=== PATIENT | male | born 1970 | race Caucasian/White ===

== ENCOUNTER 2016-11-17 12:00 | Inpatient (IN) | payer OTHER ==
[2016-11-17] VITALS (9 sets, daily range): BP systolic 113–141; BP diastolic 57–99; PULSE 69–94; RESP 13–20; O2SAT 95–100
[~2016-11-17] VITALS: Ht 180.3 cm; Wt 70.5 kg
--- NOTE | 2016-11-17 11:38 | ED.REPORT ---
HPI-General Illness Date of Service Nov 17, 2016 ED Provider: Baljinder Moore DO The pt is a 46 y/o male w/ a hx of HTN, syncope, and seizures presenting to the ED due to being found unconscious. The pt reports taking two nicotine lozenges earlier today, feeling dizzy, and then falling down. He was found soaking wet w / bystanders, which included a nurse, reporting him being pulseless, apneic, and appearing blue. CPR was begun but no shock was advised from the AED. CPR was initiated again after he turned blue again. Upon EMS arrival the patient had return of a pulse and EMS reports pt's mentation improving gradually since the episode. 4 mg of Zofran and then 2 mg of Zofran were given en route by EMS. The pt describes having a mild headache currently which is not normal for him. He is not taking any anti-seizure medications but does report taking Ibuprofen regularly. He was last seen here in the ED due to a similar episode of unresponsiveness in 2013 which was attributed in the ER to a seizure. However after more diagnostic workup no ongoing seizure medication was prescribed. Nursing Notes Stated Complaint: FOUND DOWN Chief Complaint: Found down Nursing Notes Reviewed: Yes Allergies: Coded Allergies: No Known Allergies (Unverified Allergy, Unknown, 11/09/13) General Time Seen by MD: 12:12 Chief Complaint Other ( Loss of consciousness ) Hx Obtained From: Patient, EMS Arrived By: Ambulance Sudden in Onset?: Yes Onset Occurred: Just prior to arrival Recent Healthcare: No recent doctor visit, No recent hospitalization Similar Sx Previous: Yes Past Medical History Past Medical History Seizures Syncope Past Surgical History None reported Family History Father had a hx of CHF Ambulatory Status Independent Review of Systems Full Review of Systems Neurologic: Reports: Numbness Complete sys rev & neg: except as marked. Physical Exam Vital Signs Vital Signs Date Time Temp Pulse Resp B/P Pulse Ox O2 Delivery O2 Flow Rate FiO2 11/17/16 13:59 82 13 130/82 99 Nasal Cannula 2 11/17/16 12:00 36.4 94 16 141/99 100 Room Air Initial VS: Reviewed Head / Eyes: Atraumatic, Normocephalic, PERRL ENT: Mucous membranes moist, Conjunctiva normal, No scleral icterus Neck: Supple, Non-tender, Full range of motion Respiratory: Breath sounds normal, Clear to auscultation, No respiratory distress Cardiovascular: Regular rate & rhythm, Heart sounds normal, Intact distal pulses Abdomen / GI: Soft, Non-tender, No guarding, No rebound, No distention Back: No CVA tenderness Extremities: Vascular intact, Neuro intact, No swelling, No tenderness Skin: Warm, Dry, No cyanosis General/Constitutional: Awake, Alert Neurologic: Oriented X3, No motor deficits Mental Status: Positive: Confused Interpretation & Diagnostics Lab Results Interpretation Result Diagram: 11/17/16 1216 11/17/16 1216 Test 11/17/16 12:05 11/17/16 12:16 11/17/16 14:19 Hold Urine Received (Received) White Blood Count 16.6th/mm3 (3.8-10.1) Red Blood Count 5.75mil/mm3 (4.40-5.80) Hemoglobin 16.7g/dL (13.8-17.2) Hematocrit 47.3% (41.0-50.0) Mean Corpuscular Volume 82.3fL (81-100) Mean Corpuscular Hemoglobin 29.0pg (27.0-35.0) Mean Corpuscular Hemoglobin Concent 35.3% (32.0-37.0) Red Cell Distribution Width 12.2% (12.3-15.4) Platelet Count 241bil/L (150-400) Neutrophils (%) (Auto) 82.3% (40-74) Lymphocytes (%) (Auto) 11.2% (14-46) Monocytes (%) (Auto) 4.6% (4-12) Eosinophils (%) (Auto) 1.3% (0-5) Basophils (%) (Auto) 0.3% (0-3) Sodium Level 138mEq/L (134-144) Potassium Level 4.5mEq/L (3.5-5.2) Chloride Level 99mEq/L (97-108) Carbon Dioxide Level 16mmol/L (18-29) Blood Urea Nitrogen 16mg/dL (6-24) Creatinine 1.19mg/dL (0.76-1.27) Estimat Glomerular Filtration Rate 71mL/min (>59) Glucose Level 174mg/dL (60-99) Calcium Level 9.3mg/dL (8.5-10.1) Total Bilirubin 0.5mg/dL (0.0-1.2) Aspartate Amino Transf (AST/SGOT) 47U/L (0-50) Alanine Aminotransferase (ALT/SGPT) 62U/L (0-44) Alkaline Phosphatase 100U/L (25-150) Total Protein 7.0g/dL (6.4-8.4) Albumin 4.3g/dL (3.4-5.0) Hold Weiner Top Tube Received (Received) Alcohols < 10mg/dL (0-10) Troponin T < 0.010ug/L (0.0-0.011) ECG Interpretation ECG Interpretation: Rate [address] elev, probable normal early repol pattern Time: 12:23 Interpreted by: ED physician X-Ray Chest Interpretation Chest Xray Interpretation: IMPRESSION: No acute disease Dictated by: Bertram Paige M.D. on 11/17/2016 at 13:06 Approved by: Bertram Paige M.D. on 11/17/2016 at 13:07 View: Portable, 1 view Interpretation / Wet Read by: Interpret - Radiologist CT Head Interpretation IMPRESSION: No acute intracranial process Dictated by: Bertram Paige M.D. on 11/17/2016 at 13:03 Approved by: Bertram Paige M.D. on 11/17/2016 at 13:04 Study: Head CT no contrast Interpretation / Wet Read by: Interpret - Radiologist Re-Eval/Medical Decision Med Decision/Clinical Course Patient presents after an episode of unresponsiveness. This may have represented syncope versus seizure versus cardiac arrest. Witnessed by-standards stated that he was pulseless apneic and blue. His cardiac workup in the ER is overall reassuring. This may have represented a seizure, and for that reason 1 g of IV Keppra was given. Patient has remained clinically stable since in the ER. He continues to perseverate and has not completely returned to his normal baseline. Additionally, the reported eyewitness bystander account of the patient being pulseless and apneic with color change is concerning for possible cardiac arrest. Given these reported findings recommended the patient be observed in the hospital. Source of Hx: Old records Time of Eval: 12:43 Re-Evaluation/Progress Note: Pt rechecked. He now reports his head and chest beginning to hurt. Time of Eval: 13:11 Re-Evaluation/Progress Note: Pt rechecked. Pt is perseverating and continues to have a mild headache Discussed lab and radiology results. Time of Eval: 13:24 Re-Evaluation/Progress Note: Pt rechecked. Informed pt of need for admission. Pt understands and agrees with plan for admission. All questions addressed. Consultation #1: Referral / Consult Name: Surya Bedolla Consulted With: Hospitalist Call Returned at: 13:53 Note: Discussed pt's case. Dr Bedolla will not be admitting the pt advised a neurology consult and see PCC. Consultation #2: Referral / Consult Name: [facility] Call Returned at: 15:00 Note: Discussed pt's case w/ Dr. Mcpherson of neurology. Agrees w/ obs. Recommends starting keppra 750 mg BID and to get a repeat MRI w/ contrast. Follow up with neurology outpatient. Agrees to consult via telephone as needed. No real indication for transfer. Consultation #3: Referral / Consult Name: Mayra Ladd DO Consulted With: Hospitalist Call Returned at: 15:01 Flight Teacher: Will see patient, Agrees with eval, Agrees with plan, Accepts admit Counseled Regarding: Diagnosis, Lab results, Need for admission Discharge & Departure Primary Impression: Syncope Syncope type: unspecified Qualified Code: R55 - Syncope and collapse Disposition: ADMITTED TO HOSPITAL Discharge Condition All VS Reviewed: Yes Condition: Stable Referrals: NOPCP (PCP) [facility] Scribe Attestation Portions of this note were transcribed by Dequan Bolanos. I, Dr. Gale personally performed the history, physical exam and medical decision-making; I reviewed and confirmed the accuracy of the information in the transcribed note. Signed by : Sugar Toro, 11/17/16 and 1207. copies to: [facility] Jose Gale DO Nov 17, 2016 11:38 Dequan Bolanos Nov 17, 2016 12:08
[2016-11-17] MEDS ORDERED: 0.9% Sodium Chloride 1,000 ML IV ONE ×2 (12:13→17:05)
[2016-11-17 12:24] LABS: BASOPHILS % (AUTO) 0.3 % (0-3); EOSINOPHILS % (AUTO) 1.3 % (0-5); MONOCYTES % (AUTO) 4.6 % (4-12); Mean Corpuscular Volume 82.3 fL (81-100); NEUTROPHILS % (AUTO) 82.3 % (40-74); Platelet Count 241 bil/L (150-400)
[2016-11-17] MEDS ORDERED: Ondansetron 2 mg/mL 2 mL Inj IVPUSH PRN ×3 (12:30→17:05)
--- NOTE | 2016-11-17 13:06 | DRSVH ---
PROCEDURE: CT BRAIN WITHOUT CONTRAST ([id number]) INDICATIONS: seizure TECHNIQUE: Noncontrast 4.5 mm thick angled axial sections acquired from the foramen magnum to the vertex, with c oronal reformats. COMPARISON: None. FINDINGS: Image quality: Excellent. CSF spaces: Basal cisterns are patent. No extra-axial fluid collections. Ventricles are normal in size and shape. Brain: No midline shift. No intracranial masses or hemorrhage. Belcher-white matter interface is norm al. Skull and face: Calvarium and visualized facial bones are intact, without suspicious lesions. Sinuses: Mild mucous retention cyst or polyp in the right maxillary antrum IMPRESSION: No acute intracranial process Dictated by: Bertram Paige M.D. on 11/17/2016 at 13:03 Approved by: Bertram Paige M.D. on 11/17/2016 at 13:04
--- NOTE | 2016-11-17 13:08 | DRSVH ---
PROCEDURE: X-RAY CHEST ONE VIEW, PORTABLE ([id number]) INDICATIONS: syncope vs seizure activity, TECHNIQUE: One view of the chest was acquired. COMPARISON: None. FINDINGS: Surgical changes and devices: None. Lungs and pleura: No pleural effusions or pneumothorax. Lungs are clear. Mediastinum: Mediastinal contours appear normal. Heart size is normal. Bones and chest wall: No suspicious bony lesions. Overlying soft tissues appear unremarkable. IMPRESSION: No acute disease Dictated by: Bertram Paige M.D. on 11/17/2016 at 13:06 Approved by: Bertram Paige M.D. on 11/17/2016 at 13:07
[2016-11-17] MEDS ORDERED: levETIRAcetam Inj 1,000 MG in IV Premix 1 EACH IV ONE (13:10)
[2016-11-17] MEDS ORDERED: Alum-Mag Hydrox-Simeth 30 mL Suspension PO PRN ×2 (15:15→17:05)
[2016-11-17] MEDS ORDERED: Labetalol 5 mg/mL 4 mL Inj IVPUSH ONE (17:05)
[2016-11-17] MEDS ORDERED: Labetalol 5 mg/mL 4 mL Inj IVPUSH PRN ×2 (17:05→18:35)
[2016-11-17] MEDS ORDERED: Polyethylene Glycol (PEG) 17 Gm Powder PO PRN (17:05)
--- NOTE | 2016-11-17 17:42 | PCM.HPMED ---
Subjective Date of Service Nov 17, 2016 Primary Provider: Admitting Physician: Mayra Ladd DO Primary Care Physician: Joe Attending Physician: Mayra Ladd DO Chief Complaint: Syncope History of Present Illness: 46-year-old male with a history of syncope, hypertension, and classical seizure 3 years ago presenting to the emergency department by EMS today after being found unconscious on the side of the road. Patient states that the last thing he remembers was working in his cabin and feeling dizzy. Per his mother's reports the patient was found on the side of a dirt road by a nurse driving by and CPR was started as the patient reportedly did not have a pulse. At that time mother states that the patient was blue, but improved with CPR; AED was placed but never used. When EMS arrived the patient had a pulse. He was taken to [facility] and en route EMS reports mentation was improving. Patient states that he does not remember anything until transport to the floor, meaning he is missing the ambulance ride and ED visit. Patient denies any recent illness, fever, chills, chest pain, shortness of breath, or other review of systems. He has been trying to quit smoking and states that he has been using wellbutrin and more than the recommended amount of nicotine lozenges. Patient was given loading dose of Keppra, and Dr. Mcpherson at [facility] was consultative. Patient's prior episode occurred 3 years ago and also occurred when he was attempting to quit smoking with the assistance of Wellbutrin and lozenges. He was seen by Dr. Clark 5 months after the episode and she discontinued Keppra. Review of Systems: Complete review of systems performed; pertinent positives and negatives per history of present illness; all other systems reviewed and are negative. Allergies Coded Allergies: No Known Allergies (Unverified Allergy, Unknown, 11/09/13) Home Medications Bupropion PMH Reported: Seizures; Syncope Surgical History None Family History Father had a history of heart failure but no sudden cardiac Social History Hx Alcohol Use: Yes (2-3 times per week) Alcoholic Drinks Per Day: 1-2 Hx Substance Use: No Smoking Status: Current Every Day Smoker Exam Vital Signs Vital Sign - Last Date Time Temp Pulse Resp B/P Pulse Ox O2 Delivery O2 Flow Rate FiO2 11/17/16 15:42 91 11/17/16 15:27 36.8 135/79 98 Nasal Cannula 2.00 11/17/16 15:14 20 Exam General: Patient awake alert, although appears uncomfortable HEENT: PERRLA, EOMI, no JVD, mucous membranes moist, Lymph: No lymphadenopathy Cardio: Regular rate and rhythm no murmurs rubs or gallops; chest tender to palpation; no bruising Respiratory: CTA bilaterally with out wheezes, rhonchi Abdomen: Mild guarding, nontender, nondistended, nonobese Extremities: No edema bilaterally or cyanosis; left middle finger open wound Psych: Mildly flat affect Neuro: CN II through XII intact; strength 5 out of 5 throughout; sensation intact throughout; reflexes 2 out of 4 Skin: No rashes Musculoskeletal: No abnormalities Lab and Diagnostics Result Diagram: 11/17/16 1216 11/17/16 1216 X-Rays, CTs and MRIs Brain CT IMPRESSION: No acute intracranial process Dictated by: Bertram Paige M.D. on 11/17/2016 at 13:03 Chest x-ray IMPRESSION: No acute disease Dictated by: Bertram Paige M.D. on 11/17/2016 at 13:06 12-lead ECG Sinus rhythm with rate of 91; no concerning ST deviations Assessment & Plan 46-year-old male with a past history of syncope and questionable seizures who was found on the side of the road following a syncopal event with reported respiratory and cardiac arrest. Syncope with possible cardiac arrest; present on admission; ongoing -Patient has a history of possible seizure activity, who presents with reported respiratory and cardiac arrest -Imaging so far is negative -Discuss with Dr. Mcpherson from [facility] and he recommended full stroke protocol imaging -Tox screen pending -Troponin negative 2; continue trending -Keppra loaded, continue Keppra -EEG, if not here then outpatient Acute Leukocytosis; present on admission; ongoing -Patient presented with white count 16+ -Received fluid resuscitation continued IVF -No fever or other signs of infection -Should patient develop additional symptoms will start on antibiotics and get blood cultures -Repeat CBC tomorrow Anion gap metabolic acidosis; present on admission; ongoing -Patient presents with a low bicarbonate and Of 23 -Fluid resuscitation and recheck in a.m. -Lactate pending Hyperglycemia; present admission; ongoing -Blood glucose 174 and admission Substance abuse, nicotine; present medicine; ongoing -Patient trying to quit smoking; [id number] history over 20 years -Patient was using more than recommended lozenge amount in conjunction with ibuprofen prior to episode -Nicotine patch 14 mg/24-hour -Discontinue Wellbutrin Disposition: Patient admitted to inpatient status with length of stay greater than 2 midnights due to severity of presentation, duration of treatment, and risk of adverse events. Pain Evaluation: Adequate Pain Control Resuscitation Status: CPR: Attempt Resuscitation Time spent 60minutes Attending Statement The patient was seen and examined together with Dr. Lambert on 11/17/16 and I have added additional information to the note above. Shoaib Lambert DO Nov 17, 2016 17:42 Mayra Ladd DO Nov 18, 2016 15:41
[2016-11-17] MEDS ORDERED: BUPR150T9 PO (18:37)
--- NOTE | 2016-11-17 19:13 | NUR ---
Admit Pt arrived from the ER with family at the bedside. C/O slight headache and chest muscle ache secondary to trauma from earlier in the day. Pt is A&O X3. Answers questions appropriately. INGRAM. No c/o numbness or tingling. Tele SR 70s-90s. Sp02 97% on RA. L middle finger abrasion covered with a band-aid. 20g IV in the LFA. NS hung at 125/hr. Pt is pleasant and cooperative.
[2016-11-18] VITALS (10 sets, daily range): BP systolic 100–126; BP diastolic 61–82; PULSE 56–80; RESP 14–18; O2SAT 95–98
[2016-11-18 05:27] LABS: BASOPHILS % (AUTO) 0.2 % (0-3); EOSINOPHILS % (AUTO) 4.1 % (0-5); MONOCYTES % (AUTO) 6.9 % (4-12); Mean Corpuscular Hemoglobin 30.1 pg (27.0-35.0); NEUTROPHILS % (AUTO) 65.2 % (40-74); Platelet Count 171 bil/L (150-400)
[2016-11-18 06:11] LABS: Magnesium 2.2 mg/dL (1.6-2.6); Phosphorus 3.2 mg/dL (2.5-4.9)
--- NOTE | 2016-11-18 08:46 | PCM.PNMED ---
Subjective Date of Service Nov 18, 2016 Subjective This is a 46 year old male with history of syncopal events from suspected seizure activity that occurred in setting of bupropion use and no longer on anti -seizure medications and recently started bupropion who presented after being found down and without a pulse. CPR was started. AED placed but no shockable rhythm. EMS arrived and found pulse. Suspected seizure on admit with Keppra loading dose provided. Overnight the patient states he is greatly improved. He no longer has confusion. He does admit to some chest pain over sternum that he states he can illicit by applying pressure in the area. Otherwise review of systems is negative. Exam Vital Signs Vital Sign - Last Date Time Temp Pulse Resp B/P Pulse Ox O2 Delivery O2 Flow Rate FiO2 11/18/16 08:32 37.1 67 18 126/79 98 Room Air 11/17/16 15:27 2.00 Intake and Output 11/17/16 11/17/16 11/18/16 Cumulative From/Thru 15:00 23:00 07:00 11/17/16 12:00 - 11/18/16 06:16 Intake Total 1100 ml 300 ml 1400 ml Output Total 500 ml 0 ml 500 ml Balance 600 ml 300 ml 900 ml Intake Oral 100 ml 300 ml 400 ml IV Total 1000 ml 1000 ml Output Urine Total 500 ml 0 ml 500 ml # Voids 2 3 5 Exam General: Patient awake alert, resting comfortably. HEENT: PERRLA, EOMI, no JVD, mucous membranes moist, Lymph: No lymphadenopathy Cardio: Regular rate and rhythm no murmurs rubs or gallops; chest tender to palpation; no bruising Chest: mild tenderness to palpation over sternal area. Respiratory: CTA bilaterally with out wheezes, rhonchi Abdomen: Mild guarding, nontender, nondistended, nonobese Extremities: No edema bilaterally or cyanosis, Psych: Mildly flat affect Neuro: CN II through XII intact; strength 5 out of 5 throughout; sensation intact throughout. Skin: No rashes Musculoskeletal: No abnormalities IVs and Medications Medications Reviewed: Medications were reviewed in detail Lab and Diagnostics Result Diagram: 11/18/16 0508 11/18/16 0508 X-Rays, CTs and MRIs Brain CT IMPRESSION: No acute intracranial process Dictated by: Bertram Paige M.D. on 11/17/2016 at 13:03 Chest x-ray IMPRESSION: No acute disease Dictated by: Bertram Paige M.D. on 11/17/2016 at 13:06 12-lead ECG Sinus rhythm with rate of 91; no concerning ST deviations Assessment & Plan 46-year-old male with a past history of syncope and questionable seizures who was found on the side of the road following a syncopal event with reported respiratory and cardiac arrest. Syncope; present on admission; ongoing -Patient has a history of possible seizure activity and recently started on bupropion, who presents with reported respiratory and cardiac arrest. Patient' s previous seizures several years ago was in the setting of bupropion use. -CT brain without contrast showed no acute intracranial abnormality. -Tox screen pending -Troponin negative. -Keppra started. -EEG, if not here then outpatient -Echo pending. -On telemetry. -Discuss with Dr. Mcpherson from [facility] and he recommended full stroke protocol imaging which is pending. Acute Leukocytosis; present on admission; resolved -Patient presented with white count 16+. Resolved on 11/18. -Likely secondary to stress reaction. Anion gap metabolic acidosis; present on admission; resolved. -Patient presents with a low bicarbonate. AG closed: 12 on 11/18. -Fluid resuscitation and recheck in a.m. -Lactate was 9.8 but is now .5. Hyperglycemia; present admission; resolved. -Blood glucose 174 on admission. On morning of 11/18 was 99. Substance abuse, nicotine; present medicine; ongoing -Patient trying to quit smoking; [id number] history over 20 years -Patient was using more than recommended lozenge amount in conjunction with ibuprofen prior to episode -Nicotine patch 14 mg/24-hour -Stop Bupropion. Disposition: Patient is currently progressing well and has had no more seizure- like activity. The patient most likely did have a seizure secondary to bupropion usage and overdose of nicotine lozenges. The patient has been recommended not to use bupropion anymore and this should be listed as the patient's allergy. The patient has been encouraged to continue with smoking cessation however he should most likely use the patch as directed and should abstain from bupropion usage and nicotine lozenge usage at this time. The patient has also been encouraged to start other habit-forming behavior such as exercising in place of nicotine usage. The patient and his mother stated that they both understood and will be willing to adhere to these recommendations. Resuscitation Status: CPR: Attempt Resuscitation Attending Statement The patient was seen and examined together with Dr. Saunders on 11/18/16 and I have added additional information to the note above. Geraldo Saunders DO Nov 18, 2016 08:46 Mayra Ladd DO Nov 19, 2016 08:19
[2016-11-18] MEDS: levETIRAcetam 500 mg Tablet PO SCH ×2 (09:59→20:45)
--- NOTE | 2016-11-18 10:50 | DRSVH ---
PROCEDURE: CT ANGIO HEAD AND NECK (P) INDICATIONS: Stroke / TIA TECHNIQUE: Pre-contrast 4.5 mm thick sections acquired from the foramen magnum to the vertex. After the adminis tration of intravenous contrast, 1 mm thick sections acquired from the aortic arch through the [place] of [place]. Post-contrast 4.5 mm thick sections then re-acquired from the foramen magnum to the vert ex. 3-dimensional xxefslz-hihhkuhvs-yhgypaxsky (MIP) and/or volume rendering reformats were acquired of the central intracranial vasculature and neck separately. For radiation dose reduction, the foll owing was used: automated exposure control, adjustment of mA and/or kV according to patient size. COMPARISON: [facility], US, CAROTID DUPLEX DOPPLER BILAT, 03/11/2014, 14:41. [facility], MR, MR BRAIN WO CON, 11/18/2016, 12:55. [facility], MR, STROKE PROTOCOL (PN L), 03/25/2014, 15:22. [facility], CT, CT BRAIN WO CON, 11/17/2016, 12:22. FINDINGS: Image quality: Excellent. BRAIN: CSF spaces: Ventricles are normal in size and shape. Basal cisterns are patent. No extra-axial flu id collections. Brain: No midline shift. No intracranial bleeds or masses. Belcher-white matter interface appears int act. Skull and face: Calvarium and facial bones appear intact, without suspicious lesions. Orbits appear normal. Sinuses: There is a mucous retention cyst in the right maxillary sinus. The mastoids are clear. HEAD CT ANGIOGRAPHY: Anterior circulation: Intracranial internal carotid arteries are normal in size and flow. The flow within the paired anterior cerebral arteries is normal and symmetric. The flow within the middle cer ebral arteries is normal and symmetric. The anterior communicating artery is seen. No aneurysms are seen. Posterior circulation: Visualized portions of the vertebral arteries demonstrate normal caliber, and join to form a normal appearing basilar artery. Flow within the posterior cerebral arteries is norm al and symmetric. No aneurysms are seen. NECK CT ANGIOGRAPHY: Carotid system: The great vessels demonstrate a conventional anatomy as they arise from the aortic a rch. The origins of the common carotid arteries appear patent. The common carotid arteries demonstr ate normal caliber and courses. The bifurcation regions are both widely patent. The internal caroti d arteries demonstrate normal calibers and courses. Posterior circulation: The origins of the vertebral arteries both appear widely patent. The more kimble perior extracranial portions of both vertebral arteries also demonstrate normal courses and calibers. They join to form a normal appearing basilar artery. Soft tissues: Visualized neck soft tissues demonstrate no suspicious abnormalities. Bones: No suspicious bony lesions. Visualized cervical spine appears normally aligned. IMPRESSION: 1. Normal CT head and neck angiogram. 2. Right maxillary sinus mucus retention cyst. Dictated by: Anahi Reese M.D. on 11/18/2016 at 10:45 Transcribed by: KALIE on 11/18/2016 at 10:49 Approved by: Anahi Reese M.D. on 11/18/2016 at 23:32
--- NOTE | 2016-11-18 12:38 | NUR ---
Evaluation completed. Please go to "Notes" then click on "Assessments and Notes" (bottom left corner of screen). Then select appropriate discipline tab on top of screen.
--- NOTE | 2016-11-18 14:47 | DRSVH ---
PROCEDURE: MRI BRAIN WITHOUT CONTRAST ([id number]) INDICATIONS: R/O CVA TECHNIQUE: Noncontrast axial T1 spin echo, axial T2 fast spin echo, sagittal and axial FLAIR, coronal T2 fast sp in echo, axial gradient echo, axial diffusion and ADC through the brain. COMPARISON: [facility], MR, STROKE PROTOCOL (PNL), 03/25/2014, 15:22. [facility], CT, CT ANGIO BRAIN AND NECK, 11/18/2016, 9:10. FINDINGS: Image quality: Excellent. CSF Spaces: Basal cisterns are patent. No extra-axial fluid collections. Ventricles are normal in size and shape. Brain: No intracranial masses or hemorrhage. Belcher/white matter interface is normal. Brainstem appe ars normal. Diffusion-weighted images demonstrate no acute ischemic insult. No chronic ischemic ins ults. Normal intravascular flow voids are present. Skull and face: Calvarium has normal marrow signal. Orbits appear normal. Sinuses: Sinuses demonstrate a right maxillary sinus mucus retention cyst. IMPRESSION: 1. No acute intracranial process. No acute ischemia. 2. Right maxillary sinus mucus retention cyst. Dictated by: Marlyn Camacho M.D. on 11/18/2016 at 14:44 Approved by: Marlyn Camacho M.D. on 11/18/2016 at 14:45
--- NOTE | 2016-11-18 15:33 | NUR ---
Social Work: Screen D: Per EMR review, pt is a 46 year old male admitted for syncope versus seizure. Pt is [employer] insurance. PCP is not listed. NOK is pt's mother Rosa Maria Agudelo. Advanced directives info declined. Readmit score is low, 06/09. Pt lives in [place]. He is I at baseline. Pt was found on the side of the road near his cabin in [place]. Per MD in am rounds, pt had a probable seizure but are ruling out syncopal event. Pt has been I in his room. No Sw needs identified. A: Pt who is I at baseline. P: Anticipate pt to discharge home via POV once medically stable; APPLIED PSYCHOLOGY PROFESSOR to continue to follow to assess for discharge needs. NAKUL Valdivia
--- NOTE | 2016-11-18 17:45 | DRSVH ---
[facility] [address] [place] [address] Echocardiogram Report Name: MIKAYLA SIMPSON DStudy Tim e: 11/18/2016 Height: 71 in Hospital Exam Location: [facility] Weight: 169 lb Gender: Male BSA: 2.0 m2 : 1970 Age: 46 yrs BP: 100/68 mmHg Reason For Study: CVA Ordering Physician: Performed By: Moises Calderon Interpretation Summary 1. Normal left ventricular size, wall thickness and systolic function with an estimated EF of 60-65% 2. Normal right ventricular size and systolic function. 3. No evidence for valvular pathology 4. A saline contrast study showed no evidence for an interatrial shunt Compared to the previous study, no appreciable change Procedure: A two-dimensional transthoracic echocardiogram with color flow and Doppler was performed. The study quality was technically good. Comparison is made with the echocardiogram of 03/11/14. A saline contrast injection was performed to assess for cardiac shunting. The patient was in normal sinus rhythm during the exam. Left Ventricle: The left ventricle is normal in size. There is normal left ventricular wall thickness. The ejection fraction is estimated to be 60-65%. There are no focal wall motion abnormalities. Right Ventricle: The right ventricle is normal in size and function. Atria: Both atria are normal in size. Injection of contrast documented no interatrial shunt. Mitral Valve: The mitral valve is normal in structure and function. There is trace mitral regurgitation. Aortic Valve: The aortic valve is trileaflet. The aortic valve opens well. No aortic regurgitation is present. Tricuspid Valve: The tricuspid valve is normal in structure and function. No tricuspid regurgitation. Pulmonary artery pressures cannot be estimated because of the lack of a measurable TR jet velocity. Pulmonic Valve: The pulmonic valve is normal in structure and function. There is trace pulmonic regurgitation. Great Vessels: The aortic root is normal size. The dimensions of the ascending aorta are normal. The pulmonary artery is normal size. The IVC is of normal diameter and collapses greater than 50% with a sniff. This suggests a low right atrial pressure of 3 mm Hg. Pericardium/ Pleura There is no pericardial effusion. There is no pleural effusion. MMode/2D Measurements & Calculations LVIDd: 4.7 cm LA dimension: 3.8 cm RA long axis Ao root diam LVIDs: 3.2 cm FS: 31.4 % LA A2 area: 18.5 cm RA area Aortic Jxn EPSS: 0.22 cm LA A4 area: 20.2 cm IVSd: 0.89 cm LA length (vol): 5.9 cm : 18.0 cm asc Aorta LVPWd: 0.97 cm LA vol: 54.3 ml RA vol: 56.4 mlDiam: 3.2 cm LA vol index RA : 28.7 mm2 IVC diam: 1.9 cm LV cash. diameter/BSA LV sys. diameter/BSA (cm/m^2): 2.4 (cm/m^2): 1.6 Doppler Measurements & Calculations Ao V2 max MV E max pavan MV E/A: 1.1 PA V2 max: 115.5 cm/sec : 130.9 cm/sec : 65.3 cm/sec Med Peak E' Pavan PA mean P.2 mmHg Ao max PG MV A max pavan PA Accel Time: 0.15 sec : 6.9 mmHg : 59.4 cm/sec E/E' med: 5.7 Ao mean PG Pulm A Revs Dur : 4.1 mmHg MV A dur: 0.11 sec MV dec time Ao V2 mean PA V2 mean Pulm A Revs Dur - MV A : 0.27 sec : 98.0 cm/sec : 86.1 cm/sec Dur: 0.00 msec Ao V2 VTI PA pr(Accel) : 28.3 cm : 13.9 mmHg Reading Physician:05:44 PM
--- NOTE | 2016-11-18 18:30 | NUR ---
Speech/diet/neuros Pt ate a pureed breakfast and then was evaluated by the speech the therapist in the afternoon. Pt was cleared for general diet. Pt ate a general lunch and had a good appetite. Tolerated swallowing fine, no issues. Pt has been drowsy but arousable throughout shift. Neuros within normal limits.
[2016-11-19 03:59] VITALS: BP 114/64; PULSE 63; RESP 16; O2SAT 97
[2016-11-19 04:21] VITALS: PULSE 49
[2016-11-19 05:25] LABS: BASOPHILS % (AUTO) 0.6 % (0-3); EOSINOPHILS % (AUTO) 6.2 % (0-5); MONOCYTES % (AUTO) 9.1 % (4-12); Mean Corpuscular Hemoglobin 29.9 pg (27.0-35.0); Mean Corpuscular Volume 83.4 fL (81-100); NEUTROPHILS % (AUTO) 47.4 % (40-74); Platelet Count 186 bil/L (150-400)
--- NOTE | 2016-11-19 06:18 | NUR ---
Neuro: Pt neurologically intact. No changes noted throughout the night. Pt stable; no complaints made per pt. Pt slept well.
[2016-11-19] MEDS: levETIRAcetam 500 mg Tablet PO SCH (07:35)
[2016-11-19 08:30] VITALS: BP 124/79; PULSE 60; RESP 16; O2SAT 96
[2016-11-19 08:37] VITALS: PULSE 56
[2016-11-19] MEDS ORDERED: KEP500TA PO (10:44)
--- NOTE | 2016-11-19 10:55 | PCM.DIMED ---
Geraldo Saunders DO 11/19/16 1053: Discharge Instructions Date of Service Nov 19, 2016 Dates of Hospitalization Nov 17, 2016 at 15:06 Discharge Diagnosis Discharge Diagnosis Syncope Acute Leukocytosis Anion gap metabolic acidosis Hyperglycemia Substance abuse, nicotine Diet Discharge Diet: No restrictions Activity Discharge Activity: Limited until seen by PCP Call your provider Call your provider for: Fever or Chills, Shortness of breath, Bleeding, Chest pain, Vomitting, Excessive diarrhea, Weakness (unilateral) Patient Instructions Patient Instructions You came to the hospital because you fainted and people pushed on your chest ( chest compressions) as they thought your heart had stopped working. We think that you had a seizure and fell down because of this. The seizure was because of the medications you were taking: bupropion, nicotine patch, nicotine lozenges. Do not take these medications again. As you stated at discharge you feel much improved. We have sent you home with one new medication called Keppra. This medication prevents seizures. Take per instructions. We have set you up with a appointment with your neurologist. His name is Dr. Freire. The appointment time is 8:30am on December 20, 2016. I have included the address below: [address] [place], [place] [id number] You need to see a primary care provider within in one week. We can make you a appointment at the residency clinic. The number and address are below: [address] [place] [address] If you have any worsening symptoms such as dizziness, lightheadedness, chest pain or pressure, shortness of breath, confusion then please go to the emergency department immediately. Follow-up Provider: [facility] Follow-up with PCP in: 1 week Provider: Clarke Freire MD Follow-up in: 4 weeks Mayra Ladd DO 11/19/16 1231: Discharge Instructions Attending's Statement The patient was seen and examined together with Dr. Saunders on 11/19/16 and I agree with the history, exam and plan as outlined in the note above. Geraldo Saunders DO Nov 19, 2016 10:53 Mayra Ladd DO Nov 19, 2016 12:31
--- NOTE | 2016-11-19 11:02 | PCM.DC.MED ---
Discharge Summary Date of Service Nov 19, 2016 Dates of Hospitalization Date of Hospital Admission Nov 17, 2016 at 15:06 Date of Discharge: Nov 19, 2016 Providers: Admitting Physician: Mayra Ladd DO Primary Care Physician: [facility] Attending Physician: Mayra Ladd DO Diagnosis at Time of Discharge Diagnosis at Time of Discharge Syncope Acute Leukocytosis Anion gap metabolic acidosis Hyperglycemia Substance abuse, nicotine Procedures XRay, CTs & MRIs Brain CT IMPRESSION: No acute intracranial process Dictated by: Bertram Paige M.D. on 11/17/2016 at 13:03 Chest x-ray IMPRESSION: No acute disease Dictated by: Bertram Paige M.D. on 11/17/2016 at 13:06 ECG 12 Lead Sinus rhythm with rate of 91; no concerning ST deviations Brief History 46-year-old male with a history of syncope, hypertension, and classical seizure 3 years ago presenting to the emergency department by EMS today after being found unconscious on the side of the road. Patient states that the last thing he remembers was working in his cabin and feeling dizzy. Per his mother's reports the patient was found on the side of a dirt road by a nurse driving by and CPR was started as the patient reportedly did not have a pulse. At that time mother states that the patient was blue, but improved with CPR; AED was placed but never used. When EMS arrived the patient had a pulse. He was taken to [facility] and en route EMS reports mentation was improving. Patient states that he does not remember anything until transport to the floor, meaning he is missing the ambulance ride and ED visit. Patient denies any recent illness, fever, chills, chest pain, shortness of breath, or other review of systems. He has been trying to quit smoking and states that he has been using wellbutrin and more than the recommended amount of nicotine lozenges. Patient was given loading dose of Keppra, and Dr. Mcpherson at [facility] was consultative. Patient's prior episode occurred 3 years ago and also occurred when he was attempting to quit smoking with the assistance of Wellbutrin and lozenges. He was seen by Dr. Clark 5 months after the episode and she discontinued Keppra. Hospital Course This is a 46-year-old male with a past history of syncope and questionable seizures who was found on the side of the road following a syncopal event with reported respiratory and cardiac arrest. CPR was started in the field. AED was placed but no shockable rhythm found. When EMS arrived he had a pulse. On further evaluation at hospital it was found that he has had seizures in the past both when he started the medication Bupropion. He was taking three medications that lower seizure threshhold: Bupropion, nicotine patch, and nicotine lozenges. MR brain, CTA head and neck showed no concerning abnormality. Echo was within normal limits. He was stable on discharge. For full hospital course see below: Syncope; present on admission; ongoing -Patient has a history of possible seizure activity and recently started on bupropion, who presents with reported respiratory and cardiac arrest. Patient' s previous seizures several years ago were in the setting of bupropion use. -CT brain without contrast showed no acute intracranial abnormality. -CTA head/neck, MR brain showed no concerning abnormalities. -Echo showed no concerning abnormality. -Discharged on [place]. -Referral to neurology as outpatient. Acute Leukocytosis; present on admission; resolved -Patient presented with white count 16+. Resolved on 11/18. -Likely secondary to stress reaction. Anion gap metabolic acidosis; present on admission; resolved. -Patient presents with a low bicarbonate. AG closed: 12 on 11/18. Lactic acid within normal limits 11/18. -Fluid resuscitation and recheck in a.m. Hyperglycemia; present admission; resolved. -On day of discharge blood glucose level 104. Substance abuse, nicotine; present medicine; ongoing -Patient trying to quit smoking; 40-udts-gcis history over 20 years -Patient was using more than recommended lozenge amount in conjunction with ibuprofen prior to episode -Would stop nicotine patch, nicotine lozenges, and bupropion. -Consider alternative methods of quitting tobacco as outpatient: support groups , etc. Exam Vital Signs (Last) Date Time Temp Pulse Resp B/P Pulse Ox O2 Delivery O2 Flow Rate FiO2 11/19/16 08:37 56 11/19/16 03:59 36.7 16 114/64 97 Room Air 11/17/16 15:27 2.00 Exam General: Patient awake alert, resting comfortably. HEENT: PERRLA, EOMI, no JVD, mucous membranes moist, Lymph: No lymphadenopathy Cardio: Regular rate and rhythm no murmurs rubs or gallops; chest tender to palpation; no bruising Chest: mild tenderness to palpation over sternal area. Respiratory: CTA bilaterally with out wheezes, rhonchi Abdomen: nontender, nondistended, nonobese Extremities: No edema bilaterally or cyanosis, Psych: mood and affect appropriate Neuro: CN II through XII intact; strength 5 out of 5 throughout; sensation intact throughout. Skin: No rashes Musculoskeletal: No abnormalities Test 11/17/16 12:05 11/17/16 12:16 11/17/16 14:19 11/18/16 00:28 Hold Urine Received (Received) Urine Opiates Screen Negative Urine Methadone Screen Negative Urine Barbiturates Screen Negative Urine Amphetamines Screen Negative Urine Benzodiazepines Screen Negative Urine Cocaine Metabolite Screen Negative Urine Cannabinoids Screen Negative Hold Weiner Top Tube Received (Received) Alcohols < 10mg/dL (0-10) Troponin T < 0.010ug/L (0.0-0.011) Lactic Acid Level 0.5mmol/L (0.4-2.0) Test 11/18/16 05:08 11/19/16 04:45 Phosphorus Level 3.2mg/dL (2.5-4.9) Magnesium Level 2.2mg/dL (1.6-2.6) Procalcitonin 0.26ng/mL (0.00-0.08) Thyroid Stimulating Hormone (TSH) 0.810uIU/mL (0.450-4.500) White Blood Count 8.3th/mm3 (3.8-10.1) Red Blood Count 4.99mil/mm3 (4.40-5.80) Hemoglobin 14.9g/dL (13.8-17.2) Hematocrit 41.6% (41.0-50.0) Mean Corpuscular Volume 83.4fL (81-100) Mean Corpuscular Hemoglobin 29.9pg (27.0-35.0) Mean Corpuscular Hemoglobin Concent 35.8% (32.0-37.0) Red Cell Distribution Width 12.1% (12.3-15.4) Platelet Count 186bil/L (150-400) Neutrophils (%) (Auto) 47.4% (40-74) Lymphocytes (%) (Auto) 36.5% (14-46) Monocytes (%) (Auto) 9.1% (4-12) Eosinophils (%) (Auto) 6.2% (0-5) Basophils (%) (Auto) 0.6% (0-3) Sodium Level 142mEq/L (134-144) Potassium Level 4.2mEq/L (3.5-5.2) Chloride Level 108mEq/L (97-108) Carbon Dioxide Level 23mmol/L (18-29) Blood Urea Nitrogen 14mg/dL (6-24) Creatinine 0.93mg/dL (0.76-1.27) Estimat Glomerular Filtration Rate 94mL/min (>59) Glucose Level 105mg/dL (60-99) Calcium Level 8.8mg/dL (8.5-10.1) Total Bilirubin 0.2mg/dL (0.0-1.2) Aspartate Amino Transf (AST/SGOT) 18U/L (0-50) Alanine Aminotransferase (ALT/SGPT) 34U/L (0-44) Alkaline Phosphatase 86U/L (25-150) Total Protein 5.7g/dL (6.4-8.4) Albumin 3.4g/dL (3.4-5.0) Discharge Medications Discharge Medications Bupropion HCl (Zyban) 150 Mg Tablet.er 75 MG PO BID (Reported) Levetiracetam (Keppra) 500 Mg Tablet 500 MG PO BID Prescribed by: PREM SAUNDERS, Followup Plan Discharge Diet: No restrictions Discharge Activity: Limited until seen by PCP Patient Instructions You came to the hospital because you fainted and people pushed on your chest ( chest compressions) as they thought your heart was not working. We think that you had a seizure and fell down because of this. The seizure was because of the medications you were taking: bupropion, nicotine patch, nicotine lozenges. Do not take these medications again. As you stated at discharge you feel much improved. We have sent you home with one new medication called Keppra. This medication prevents seizures. Take per instructions. We have set you up with a appointment with your neurologist. Her name is Dr. Ng. The appointment time is 8:30am on December 20, 2016. I have included the address below: [address] [place] [id number] You need to see a primary care provider within in one week. We can make you a appointment at the residency clinic. The number and address are below: [address] [place] [address], [place], [address] If you have any worsening symptoms such as dizziness, lightheadedness, chest pain or pressure, shortness of breath, confusion then please go to the emergency department immediately. Follow-up Provider: [facility] Follow-up with PCP in: 1 week Provider: Clarke Freire MD Follow-up in: 4 weeks Time spent Greater than 35 minutes Attending Statement The patient was seen and examined together with Dr. Saunders on 11/19/2016 and I have added additional information to the note above. copies to: [facility]; Clarke Freire MD, Christopher DO Nov 19, 2016 11:02 Mayra Ladd DO Nov 19, 2016 12:38
--- NOTE | 2016-11-19 12:07 | NUR ---
Social Work: Discharge D: EMR reviewed. Pt is on day 2 of hospitalization. Per MD is AM multi-disciplinary rounds, pt is medically stable and ready to discharge home today. Pt to transport home via POV. SW does not anticipate any discharge needs but will continue to follow if needs arise. A: Pt who is independent at baseline. P: Pt to transport home via POV. SW does not anticipate any discharge needs but will continue to follow if needs arise. NAKUL Nichole
--- NOTE | 2016-11-19 14:00 | NUR ---
Discharge Pt was educated on new medication and given his prescription. Patient and Mom demonstrated understanding of teaching, aware of follow-up instructions. IVs were removed. Telemetry leads were removed. Pt understands when his follow-up appointments are and which MD he is to see. Pt and RN both signed final page of discharge packet. Pt left at 1330 with staff assistance down to the car. Pt had all personal belongings.
== END 2016-11-19 13:30 | disposition home or self-care (01) | DRG 101 ==
LOC: SED 12:00 → OBSVTOIN 15:06 → PCC 15:06
PROVIDERS: ADMIT Neuromusculoskeletal Medicine & OMM; ATTEND Neuromusculoskeletal Medicine & OMM
DX: G40.89 Other seizures (principal); E87.2 Acidosis; R55 Syncope and collapse; I10 Essential (primary) hypertension; F17.210 Nicotine dependence, cigarettes, uncomplicated; R73.9 Hyperglycemia, unspecified